=== PATIENT | male | born 1995 | race Caucasian/White ===

== ENCOUNTER 2020-11-18 08:54 | Emergency (ER) | payer BC ==
[~2020-11-18] VITALS: Ht 180.3 cm; Wt 104.3 kg
[~2020-11-18 08:54] MED LIST: IBUPROFEN 800800 M1 PO; NOHOMEMEDICATIONS
[2020-11-18 10:48] VITALS: BP 131/71
== END 2020-11-18 10:49 | disposition home or self-care (01) ==
LOC: M.ERS 08:54
DX: S61.211A Laceration without foreign body of left index finger without damage to nail, initial encounter (principal); Z88.0 Allergy status to penicillin; W26.0XXA Contact with knife, initial encounter; Y93.89 Activity, other specified; Y92.89 Other specified places as the place of occurrence of the external cause; Y99.9 Unspecified external cause status

== ENCOUNTER 2021-02-01 19:01 | Emergency (ER) | payer BC ==
[~2021-02-01] VITALS: Ht 180.3 cm; Wt 106.6 kg
[2021-02-01] MEDS ORDERED: EFFEXOR XR75 MG PO (19:16)
[2021-02-01 19:52] VITALS: BP 136/75
== END 2021-02-01 19:52 | disposition home or self-care (01) ==
LOC: M.ERS 19:01
DX: J06.9 Acute upper respiratory infection, unspecified (principal); R43.0 Anosmia; Z20.822 Contact with and (suspected) exposure to COVID-19; Z88.0 Allergy status to penicillin